=== PATIENT | male | born 1975 | race Caucasian/White ===

== ENCOUNTER 2017-02-06 15:37 | Observation (INO) | payer OTHER ==
[~2017-02-06] VITALS: Ht 193 cm; Wt 128.5 kg
[2017-02-06] MEDS ORDERED: SEROQUEL25 MG PO (15:53)
[2017-02-06] MEDS ORDERED: LISINOP/HCTZ1 TA1 PO (15:53)
[2017-02-06 16:50] LABS: HEMATOCRIT 41.9 % (39.0-50.0); HEMOGLOBIN 14.7 g/dl (14.0-18.0); IMMATURE GRANULOCYTES 0.7 % (0.0-1.0); MEAN CELL VOLUME 82.2 fL CALC (80.0-100.0); MEAN CORPUSCULAR HGB 28.8 pG CALC (26.0-32.0); MEAN CORPUSCULAR HGB CONC 35.1 g/L CALC (32.0-36.0); NEUT# 3.54 thou/uL (1.82-7.42); RED BLOOD COUNT 5.1 mill/uL (4.70-6.10); RED CELL DISTRI WIDTH 12.7 % (11.5-15.5)
[2017-02-06 17:03] LABS: INTERNATIONAL NORMALIZED RATIO 0.9 RATIO (0.7-1.3); PROTHROMBIN TIME 9.9 SECONDS (9.0-12.5)
[2017-02-06 17:10] LABS: ALBUMIN 4.3 g/dL (3.2-5.0); ALKALINE PHOSPHATASE 63 u/l (38-126); ANION GAP 18 (6-22 (CALC)); BILIRUBIN, TOTAL 0.3 mg/dL (0.0-1.4); BUN 13 mg/dL (9-20); BUN/CREATININE RATIO 15 (12-20 (CALC)); CALCIUM 9.6 mg/dL (8.4-10.2); CARBON DIOXIDE 23 mmol/l (22-30); CHLORIDE 107 mmol/l (95-108); CREATININE 0.9 mg/dL (0.7-1.3); GFR > 60 ML/MIN (>=60 (CALC)); GFR FOR AFR.AMER. > 60 ML/MIN (>=60 (CALC)); GLUCOSE 92 mg/dL (75-110); POTASSIUM 4.2 mmol/l (3.5-5.1); SGOT/AST 15 u/l (17-59); SGPT/ALT 29 u/l (21-72); SODIUM 144 mmol/l (137-146); TOTAL PROTEIN 7.3 g/dL (6.3-8.2)
[2017-02-06 17:41] LABS: TSH, 3RD GENERATION 1.02 uIU/mL (0.47 - 4.68)
[2017-02-06 19:25] VITALS: BP 140/81
[2017-02-06 19:34] VITALS: BP 146/98
== END 2017-02-06 21:50 | disposition left against medical advice (07) | DRG 313 ==
LOC: ED 15:37 → ED-I 17:53 → ED 18:10 → MS2 18:11
PROVIDERS: Emergency Medicine; ADMIT Internal Medicine; ATTEND Internal Medicine
DX: R07.9 Chest pain, unspecified (principal); I10 Essential (primary) hypertension; M54.12 Radiculopathy, cervical region; F17.210 Nicotine dependence, cigarettes, uncomplicated; Z87.442 Personal history of urinary calculi

== ENCOUNTER 2017-02-09 16:36 | Emergency (ER) | payer OTHER ==
[~2017-02-09] VITALS: Ht 193 cm; Wt 125.7 kg
[~2017-02-09 16:36] MED LIST: LISINOP/HCTZ1 TA1 PO; SEROQUEL25 MG PO
[2017-02-09] MEDS ORDERED: PERCOCET 5/325M1 TAB PO (18:01)
[2017-02-09 18:02] VITALS: BP 121/93
== END 2017-02-09 18:10 | disposition home or self-care (01) | DRG 552 ==
LOC: ED 16:36
DX: M54.2 Cervicalgia (principal); I10 Essential (primary) hypertension; F17.210 Nicotine dependence, cigarettes, uncomplicated

== ENCOUNTER 2017-03-31 12:16 | Emergency (ER) | payer OTHER ==
[~2017-03-31] VITALS: Ht 193 cm; Wt 120.0 kg
[~2017-03-31 12:16] MED LIST changes: +PERCOCET 5/325M1 TAB PO
[2017-03-31] MEDS ORDERED: LORTAB 5-325 MG1 TAB PO (12:50)
[2017-03-31] MEDS ORDERED: PENICILLN VK500 MG PO (12:50)
[2017-03-31 12:52] VITALS: BP 124/92
== END 2017-03-31 12:59 | disposition home or self-care (01) | DRG 159 ==
LOC: ED 12:16
DX: K02.9 Dental caries, unspecified (principal)

== ENCOUNTER 2017-05-09 11:41 | Emergency (ER) | payer OTHER ==
[~2017-05-09] VITALS: Ht 193 cm; Wt 113.0 kg
[~2017-05-09 11:41] MED LIST changes: +LORTAB 5-325 MG1 TAB PO; +PENICILLN VK500 MG PO
[2017-05-09] MEDS ORDERED: CLEOCIN150 M1 PO (12:34)
[2017-05-09] MEDS ORDERED: NAPROSYN500 MG PO (12:34)
[2017-05-09 12:37] VITALS: BP 135/62
== END 2017-05-09 12:37 | disposition home or self-care (01) | DRG 159 ==
LOC: ED 11:41
DX: K02.9 Dental caries, unspecified (principal)

== ENCOUNTER 2017-06-05 10:25 | Emergency (ER) | payer OTHER ==
[~2017-06-05] VITALS: Ht 193 cm; Wt 90.9 kg
[~2017-06-05 10:25] MED LIST changes: +CLEOCIN150 M1 PO; +NAPROSYN500 MG PO
[2017-06-05 11:06] LABS: HEMATOCRIT 42.9 % (39.0-50.0); HEMOGLOBIN 14.9 g/dl (14.0-18.0); IMMATURE GRANULOCYTES 0.9 % (0.0-1.0); MEAN CELL VOLUME 84.4 fL CALC (80.0-100.0); MEAN CORPUSCULAR HGB 29.3 pG CALC (26.0-32.0); MEAN CORPUSCULAR HGB CONC 34.7 g/L CALC (32.0-36.0); NEUT# 4.22 thou/uL (1.82-7.42); RED BLOOD COUNT 5.08 mill/uL (4.70-6.10); RED CELL DISTRI WIDTH 12.8 % (11.5-15.5)
[2017-06-05 11:24] LABS: ALBUMIN 4.4 g/dL (3.2-5.0); ALKALINE PHOSPHATASE 79 u/l (38-126); AMYLASE < 30 u/l (30-110); ANION GAP 17 (6-22 (CALC)); BILIRUBIN, TOTAL 0.5 mg/dL (0.0-1.4); BUN 16 mg/dL (9-20); BUN/CREATININE RATIO 17 (12-20 (CALC)); CALCIUM 9.8 mg/dL (8.4-10.2); CARBON DIOXIDE 24 mmol/l (22-30); CHLORIDE 107 mmol/l (95-108); CREATININE 0.9 mg/dL (0.7-1.3); GFR > 60 ML/MIN (>=60 (CALC)); GFR FOR AFR.AMER. > 60 ML/MIN (>=60 (CALC)); GLUCOSE 102 mg/dL (75-110); LIPASE 120 u/l (23-300); POTASSIUM 4.7 mmol/l (3.5-5.1); SGOT/AST 15 u/l (17-59); SGPT/ALT 31 u/l (21-72); SODIUM 143 mmol/l (137-146); TOTAL PROTEIN 7.2 g/dL (6.3-8.2)
[2017-06-05 11:26] LABS: URINE BILIRUBIN - DIPSTICK NEGATIVE (NEGATIVE); URINE BLOOD DIPSTICK LARGE (NEGATIVE); URINE COLOR YELLOW; URINE GLUCOSE - DIPSTICK NEGATIVE (NEGATIVE); URINE KETONE NEGATIVE (NEGATIVE); URINE LEUK ESTERASE NEGATIVE (NEGATIVE); URINE NITRITE - DIPSTICK NEGATIVE (Negative); URINE PH 5.5 (4.5-8.0); URINE PROTEIN - DIPSTICK NEGATIVE (NEG-TRACE); URINE SPECIFIC GRAVITY 1.025; URINE UROBILINOGEN - DIPSTICK 0.2 E.U./dL (0.2)
[2017-06-05 12:35] LABS: URINE CLARITY SLIGHT CLOUDY
[2017-06-05] MEDS ORDERED: LORTAB 10-325 M1 TAB PO (13:54)
[2017-06-05] MEDS ORDERED: FLEXERIL PO (15:36)
[2017-06-05] MEDS ORDERED: NAPROSYN500 MG PO (15:36)
[2017-06-05] MEDS ORDERED: ULTRAM50 M1 PO (16:14)
[2017-06-05 16:26] VITALS: BP 139/81
== END 2017-06-05 16:26 | disposition home or self-care (01) | DRG 694 ==
LOC: ED 10:25
PROVIDERS: Emergency Medicine
DX: N20.0 Calculus of kidney (principal); I10 Essential (primary) hypertension; R10.31 Right lower quadrant pain; Z87.442 Personal history of urinary calculi; M54.2 Cervicalgia; M25.512 Pain in left shoulder; M25.552 Pain in left hip; W06.XXXA Fall from bed, initial encounter; Y92.238 Other place in hospital as the place of occurrence of the external cause
CPT/HCPCS: Q9967

== ENCOUNTER 2018-08-21 10:24 | Emergency (ER) | payer OTHER ==
[~2018-08-21] VITALS: Ht 193 cm; Wt 135.0 kg
[~2018-08-21 10:24] MED LIST changes: +FLEXERIL PO; +LORTAB 10-325 M1 TAB PO; +ULTRAM50 M1 PO
[2018-08-21] MEDS ORDERED: LIPITOR20 MG PO (11:11)
[2018-08-21] MEDS ORDERED: FENOFIBRATE160 MG PO (11:11)
[2018-08-21] MEDS ORDERED: PROCARDIA XL30 MG PO (11:11)
[2018-08-21] MEDS ORDERED: TRAMADOL HCL50 MG PO (11:11)
[2018-08-21] MEDS ORDERED: VITAMIN D-11000 UNIT PO (11:12)
[2018-08-21] MEDS ORDERED: ASPIRIN CHEWABL81 MG PO (11:12)
[2018-08-21 11:15] VITALS: BP 151/94
== END 2018-08-21 11:15 | disposition home or self-care (01) | DRG 93 ==
LOC: ED 10:24
DX: G89.29 Other chronic pain (principal); M54.2 Cervicalgia; I10 Essential (primary) hypertension; T38.0X6A Underdosing of glucocorticoids and synthetic analogues, initial encounter; Z91.128 Patient's intentional underdosing of medication regimen for other reason

== ENCOUNTER 2018-11-12 08:26 | Emergency (ER) | payer OTHER ==
[~2018-11-12 08:26] MED LIST changes: +ASPIRIN CHEWABL81 MG PO; +FENOFIBRATE160 MG PO; +LIPITOR20 MG PO; +PROCARDIA XL30 MG PO; +TRAMADOL HCL50 MG PO; +VITAMIN D-11000 UNIT PO
== END 2018-11-12 08:48 | disposition left against medical advice (07) | DRG 951 ==
LOC: ED 08:26 → LWOBS 08:47
DX: Z91.19 Patient's noncompliance with other medical treatment and regimen (principal)

== ENCOUNTER 2018-11-12 12:27 | Emergency (ER) | payer OTHER ==
[~2018-11-12] VITALS: Ht 193 cm; Wt 143.0 kg
[2018-11-12 13:30] VITALS: BP 149/88
== END 2018-11-12 13:30 | disposition left against medical advice (07) | DRG 103 ==
LOC: ED 12:27
DX: R51 Headache (principal); I10 Essential (primary) hypertension; Z91.19 Patient's noncompliance with other medical treatment and regimen